=== PATIENT | male | born 1930 | race Caucasian/White ===

== ENCOUNTER 2018-07-17 09:22 | Emergency (ER) | payer MEDICARE ==
[2018-07-17] MEDS ORDERED: Silver Sulfadiazine 1% CREAM (50 gm) ONE (09:57)
[2018-07-17] MEDS ORDERED: Tetanus/Diphtheria Toxoids 0.5 ml Syringe IM ONE ×2 (10:17→10:33)
--- NOTE | 2018-07-17 10:21 | ED PDOC ---
HPI: Wound Care - HPI Time Seen by Provider: 07/17/18 09:40 Chief Complaint (Nursing): Abnormal Skin Integrity Chief Complaint (Provider): skin tear History Per: Patient, Family Exam Limitations: no limitations Onset/Duration Of Symptoms: Days (3) Current Symptoms Are (Timing): Still Present Additional Complaint(s): Pt. is an 87 year old Male who presents to ED with skin tear to right forearm, sustained 3 d. ago when he reached around to the back of his wheelchair and cut his arm on the metal. Family at bedside performed local wound care however wound occ. rebleeds as pt. continues to use it and continues to bump it on wheelchair and it rebleeds. Past Medical History Reviewed: Historical Data, Nursing Documentation, Vital Signs Vital Signs: Last Vital Signs Temp 97 F L 07/17/18 09:26 Pulse 62 07/17/18 09:26 Resp 18 07/17/18 09:40 BP 121/50 L 07/17/18 09:26 Pulse Ox 95 07/17/18 09:26 - Medical History PMH: CAD - Surgical History Surgical History: No Surg Hx - Family History Family History: States: Unknown Family Hx - Immunization History Hx Tetanus Toxoid Vaccination: No - Allergies Allergies/Adverse Reactions: Allergies Allergy/AdvReac Type Severity Reaction Status Date / Time No Known Allergies Allergy Verified 07/17/18 09:38 Review of Systems ROS Statement: Except As Marked, All Systems Reviewed And Found Negative Physical Exam - Reviewed Nursing Documentation Reviewed: Yes Vital Signs Reviewed: Yes - Physical Exam Appears: Positive for: Well, Non-toxic Skin: Positive for: Normal Color (several healed skin tears with hypopigmentation to upper extremities. ) Extremity: Positive for: Normal ROM, Other ((+) Large 5 cm. irregular skin tear to posterior mid forearm,no active bleeding, (-) purulence, erythema, tenderness. ). Negative for: Tenderness, Swelling Neurologic/Psych: Positive for: Alert, Oriented - ECG O2 Sat by Pulse Oximetry: 95 Medical Decision Making Medical Decision Making: Skin tear cleaned thoroughly with NS, hematoma expressed, wound edges approximated, silvadene applied, bulky d/s/d applied. Pt. tolerated well. Discussed with pt. and family that large skin tear will be slow to heal, needs wound care and may need further intervention ie debridement, grafting however no emergent intervention needed at this time. Td prophylaxis given. Disposition - Clinical Impression Clinical Impression: Skin tear - Patient ED Disposition Is Patient to be Admitted: No Counseled Patient/Family Regarding: Diagnosis, Need For Followup - Disposition [facility]Outside] Disposition: Routine/Home Disposition Time: 10:32 Condition: GOOD Forms: [facility] ([place])
[2018-07-17 11:39] VITALS: BP 125/80; PULSE 75; RESP 16; TEMP 98.1; O2SAT 100
== END 2018-07-17 11:39 | disposition home or self-care (01) ==
LOC: H.ER 09:22
DX: S51.811A Laceration without foreign body of right forearm, initial encounter (principal); W26.8XXA Contact with other sharp object(s), not elsewhere classified, initial encounter; Y92.89 Other specified places as the place of occurrence of the external cause; I25.10 Atherosclerotic heart disease of native coronary artery without angina pectoris